=== PATIENT | female | born 1955 | race Two or more races ===

== ENCOUNTER → 2016-12-24 | Outpatient (CLI) | payer OTHER ==
[~2016-12-24] MED LIST: GADOBUTROL 10 MMOL/10 ML VIAL ONE
== END | disposition home or self-care (01) ==
LOC: CFH 08:07
PROVIDERS: ATTEND Neurological Surgery
DX: G31.9 Degenerative disease of nervous system, unspecified (principal); D44.3 Neoplasm of uncertain behavior of pituitary gland
CPT/HCPCS: 70553; A9585